=== PATIENT | female | born 1975 | race Two or more races ===

== ENCOUNTER 2016-12-17 00:35 | Emergency (ER) | payer MEDICARE, MEDICAID ==
[~2016-12-17] VITALS: Ht 167.6 cm; Wt 67.1 kg
[~2016-12-17 00:35] MED LIST: CARB400T; NOR10T; PHEN100C70 PO; PRO125RS; RIZA5TAB10
[2016-12-17 01:55] LABS: Urine RBC None Seen /hpf (0 - 4)
[2016-12-17 02:01] LABS: Urine Bilirubin Negative (Negative); Urine Blood Negative /uL (Negative); Urine Color Yellow (Yellow); Urine Glucose Normal (Normal); Urine Ketone Negative (Negative); Urine Nitrite Negative (Negative); Urine Squamous Epithelial Cell FEW /hpf (<5); Urine Urobilinogen Normal (Negative)
[2016-12-17] MEDS ORDERED: ONDANSETRON HCL 4 MG/2 ML VIAL IV ONE (04:00)
[2016-12-17] MEDS ORDERED: HYDROmorphone HCL 2 MG/ML VL IV ONE ×2 (04:00→06:00)
[2016-12-17] MEDS ORDERED: PROMETHAZINE HCL 25 MG/ML 1ML ONE (04:08)
[2016-12-17 04:15] LABS: Basophils # (auto) 0.1 uL; Eosinophils # (auto) 0 uL; Mean Platelet Volume 7.6 fL (6.9-10.8)
[2016-12-17] MEDS ORDERED: PROMETHAZINE HCL 25 MG/ML 1ML IV ONE (04:15)
[2016-12-17 04:17] LABS: Basophils % (auto) 0.8 % (0.0-2.0); Eosinophils % (auto) 0.5 % (0.0-7.0); Hematocrit 32.8 % (36.0-46.0); Hemoglobin 10.7 g/dL (12.2-16.2); Lymphocytes # (auto) 1.8 uL; Lymphocytes % (auto) 22.6 % (10.0-50.0); Mean Corpuscular Hemoglobin 26.3 pg (28.0-32.0); Mean Corpuscular Hgb Conc. 32.5 g/dL (32.0-36.0); Mean Corpuscular Volume 81.2 fL (80.0-100.0); Monocytes # (auto) 0.7 uL; Monocytes % (auto) 8.4 % (0.0-12.0); Neutrophils # (auto) 5.3 uL; Neutrophils % (auto) 67.7 % (37.0-80.0); Platelet Count (auto) 340 10^3/uL (140-450); White Blood Cell 7.9 10^3/uL (4.4-10.8)
[2016-12-17 04:26] LABS: Albumin 2.8 g/dL (3.4-5.0); BUN/Creatinine Ratio 24.6; Bilirubin, Total 0.4 mg/dL (0.2-1.0); Calcium 8.6 mg/dL (8.5-10.1); Potassium 4.1 mmol/L (3.5-5.1); Total Protein 6.5 g/dL (6.4-8.2)
[2016-12-17 04:37] LABS: Red Cell Distribution Width 21.1 % (11.8-14.3)
[2016-12-17 05:16] VITALS: BP 112/67
[2016-12-17 05:42] LABS: Platelet Estimate Adequate
[2016-12-17 05:43] LABS: Anisocytosis Slight; Hypersegmented Neutrophils Present; Hypochromia Slight
[2016-12-17 05:44] LABS: Ovalocytes FEW
== END 2016-12-17 06:21 | disposition home or self-care (01) ==
LOC: ER 00:35
DX: R19.00 Intra-abdominal and pelvic swelling, mass and lump, unspecified site (principal); K92.1 Melena; F17.210 Nicotine dependence, cigarettes, uncomplicated; F12.10 Cannabis abuse, uncomplicated; Z88.1 Allergy status to other antibiotic agents; Z88.8 Allergy status to other drugs, medicaments and biological substances; Z91.041 Radiographic dye allergy status; Z98.890 Other specified postprocedural states
CPT/HCPCS: 36415; 74176; 80053; 81001; 81025; 85025; 96374; 96375; 96376; 99285; J1170; J2405; J2550

== ENCOUNTER 2016-12-19 15:15 | Emergency (ER) | payer MEDICARE, MEDICAID | END 2016-12-19 16:30 | disposition left against medical advice (07) | LOC: ER 15:21 | DX: R52 Pain, unspecified (principal); Z53.21 Procedure and treatment not carried out due to patient leaving prior to being seen by health care provider ==

== ENCOUNTER 2016-12-19 16:27 | Emergency (ER) | payer MEDICARE, MEDICAID ==
[~2016-12-19] VITALS: Ht 167.6 cm; Wt 67.1 kg
[2016-12-19 16:42] VITALS: BP 100/70
== END 2016-12-19 22:38 | disposition left against medical advice (07) ==
LOC: EDBD 16:27 → ER 16:37
DX: R20.0 Anesthesia of skin (principal); Z53.21 Procedure and treatment not carried out due to patient leaving prior to being seen by health care provider